=== PATIENT | female | born 1965 | race Caucasian/White ===

== ENCOUNTER → 2024-12-26 | Outpatient (CLI) | payer MEDICAID, SELFPAY ==
--- NOTE | 2024-12-26 14:08 | XR_ITS ---
Examination: PA lateral chest 2 views TECHNIQUE: Upright PA lateral chest 2 views Exam date and time: December 26, thousand 25 1524 hours INDICATIONS: Shortness of breath beginning 5 days ago. FINDINGS: Scarring versus pneumonia in the lingular segment, best depicted on the lateral view Normal heart size Bilateral axillary surgical clips Probable rib deformities in the left upper lobe but clinical correlation advised IMPRESSION: Scarring versus pneumonia in the lingular segment left upper lobe, clinical correlation advised Recommend AP lordotic chest follow-up to confirm rib abnormalities at the left apex
== END | disposition home or self-care (01) ==
LOC: SDIM 13:57
DX: R06.02 Shortness of breath (principal)
CPT/HCPCS: 71046

== ENCOUNTER → 2024-12-28 | Outpatient (CLI) | payer MEDICAID, SELFPAY ==
--- NOTE | 2024-12-28 13:58 | XR_ITS ---
Examination: PA lateral chest 2 views AP lordotic chest single view TECHNIQUE: Upright PA lateral chest 2 views AP upright lordotic chest single view Exam date and time: December 28, 2024 1515 hours INDICATIONS: Rib deformities versus parenchymal disease left apex on chest film December 26, 2024 FINDINGS: Normal heart size Bilateral axillary clips No lobar pneumonia or pulmonary edema Lordotic film does not confirm parenchymal disease at the apices IMPRESSION: No pneumonia or pulmonary edema Lordotic film does not confirm parenchymal disease at the apices
== END | disposition home or self-care (01) ==
DX: Q76.6 Other congenital malformations of ribs (principal)
CPT/HCPCS: 71047

== ENCOUNTER 2025-01-24 11:41 | Emergency (ER) | payer MEDICAID, SELFPAY ==
--- NOTE | 2025-01-24 11:47 | EKG_ITS ---
[facility] Test Date: 2025-01-24 Pat Name: SYBIL ROTHMAN Department: Room: - Gender: Female Pediatric Occupational Therapist: : [id number] Requested By: ED Temporary Provider Order Number: [id number] Reading MD: ED Temporary Provider Measurements Intervals [place] Rate: 81 P: 79 MT: 131 QRS: 57 QRSD: 82 T: 83 QT: 374 QTc: 435 Interpretive Statements SINUS RHYTHM MINIMAL ST DEPRESSION [0.025+ mV ST DEPRESSION] No previous ECG available for comparison /store/S0/[id number].pdf
--- NOTE | 2025-01-24 12:05 | XR_ITS ---
Examination: PA lateral chest 2 views TECHNIQUE: Upright PA lateral chest 2 views Date and time: January 24, 2025 at 1234 hours Comparison the 2024 INDICATIONS: Chest pain shortness of breath today. FINDINGS: Moderate hyperexpansion Bilateral axillary surgical clips Parenchymal disease in the lingular segment, noted on the Dec 28 2024 exam No interval pneumonia or pulmonary edema IMPRESSION: Findings most consistent with scar formation in the lingular segment left upper lobe but clinical correlation advised
--- NOTE | 2025-01-24 12:06 | PD.EDRME ---
Rapid Medical Screening Exam RME Arrival date/time: 01/24/25 11:41 59-year-old female presents to the emergency department today for complaints of chest pain and shortness of breath Chief Complaint: Chest Pain
[2025-01-24 12:08] VITALS: BP 97/61; PULSE 77; RESP 16; TEMP 36.8; O2SAT 98; BMI 19.7
[2025-01-24 12:37] LABS: Basophils % (Auto) 0 % (0-2.5); Eosinophils # (Auto) 0.2 Thou/mm3 (0.0-0.5); Eosinophils % (Auto) 2 % (0-10); Hematocrit 41.4 % (36.0-46.0); Hemoglobin 13.7 g/dL (12.0-16.0); Immature Granulocytes % (Auto) 0 % (0-0); Immature Granulocytes Auto 0.03 Thou/mm3 (0.00-0.00); Lymphocytes # (Auto) 1.6 Thou/mm3 (1.0-4.8); Lymphocytes % (Auto) 16 % (10-50); Mean Corpuscular HGB Conc 33.1 g/dl (31.0-37.0); Mean Corpuscular Hemoglobin 31.8 pg (25.0-35.0); Mean Corpuscular Volume 96 fL (80-100); Monocytes # (Auto) 0.7 Thou/mm3 (0.0-0.8); Monocytes % (Auto) 7 % (0-12); Neutrophils # (Auto) 7.5 Thou/mm3 (1.8-7.7); Neutrophils % (Auto) 75 % (37-80); Nucleated Red Blood Cell % 0 /100 WBC (0); Platelet Count 444 Thou/mm3 (140-440); RDW Standard Deviation 48.7 fL (36.4-46.3); Red Blood Count 4.31 Miln/mm3 (4.00-5.20); White Blood Count 9.9 Thou/mm3 (3.6-11.0)
[2025-01-24 13:00] LABS: B-Type Natriuretic Peptide < 20 pg/mL (0-100)
[2025-01-24 13:02] LABS: Partial Thromboplastin Time 25.7 Seconds (22.0-36.0)
[2025-01-24 13:04] LABS: Alanine Aminotransferase 13 U/L (10-49); Albumin, Serum 3.7 gm/dL (3.5-5.0); Albumin/Globulin Ratio 1.7 (1.2-2.2); Alkaline Phosphatase 107 U/L (46-116); Anion Gap 10 (7-16); Aspartate Amino Transferase 19 U/L (0-34); BUN/Creatinine Ratio 13 Ratio (12-20); Bilirubin,Total 0.6 mg/dL (0.3-1.2); Blood Urea Nitrogen 8 mg/dL (9-23); Calcium (Corrected) 8.2 mg/dL (8.5-10.1); Chloride 105 mMol/L (98-107); Creatinine (Component) 0.6 mg/dL (0.6-1.3); Estimated Creatinine Clearance 85.2 mL/min (>60); Globulin 2.2 gm/dL (2.3-3.5); Glucose 79 mg/dL (74-106); Magnesium 1.8 mg/dL (1.6-2.6); Osmolality,Calculated 282 (275-295); Potassium 3.2 mMol/L (3.4-5.1); Sodium 143 mMol/L (136-145); Total Protein 5.9 gm/dL (5.7-8.2); Troponin I < 0.002 ng/mL (0.0-0.045); eGFR > 60 See Note
[2025-01-24 15:38] LABS: Troponin I < 0.002 ng/mL (0.0-0.045)
[2025-01-24 16:05] VITALS: BP 113/67; PULSE 79; RESP 18; TEMP 36.8; O2SAT 99
== END 2025-01-24 17:35 | disposition left against medical advice (07) ==
LOC: SERX 12:46
PROVIDERS: Nurse Practitioner Primary Care; Emergency Provider Emergency Medicine
DX: R07.9 Chest pain, unspecified (principal); R06.02 Shortness of breath; Z53.29 Procedure and treatment not carried out because of patient's decision for other reasons
CPT/HCPCS: 36415; 71046; 80053; 80307; 81001; 83735; 83880; 84484; 85025; 85610; 85730; 93005; 99281

== ENCOUNTER → 2025-02-15 | Outpatient (CLI) | payer MEDICAID, SELFPAY ==
--- NOTE | 2025-02-15 08:30 | XR_ITS ---
Examination: CT chest, without intravenous contrast. Sagittal and coronal 2-D reconstructions. Exam date and time: February 15 thousand 25 0840 hours INDICATIONS: Smoking history 20 years CTDI:vol (mGy) 6.09 DLP: (mGycm) 235 Technique: Multiple 3.0 mm axial sections of the chest to been obtained. Bone and lung density settings are obtained. Sagittal and coronal 2-D reconstructions have been obtained. Low dose protocols were performed. One or more of the following dose reduction techniques were used; automated exposure control, adjustment of the mA and/or KV according to patient size, use of iterative reconstruction technique. Findings: No thoracic aortic aneurysm dilatation Pulmonary artery segments are not enlarged. Significant calcification left anterior descending coronary artery. No paratracheal tracheobronchial or bronchopulmonary adenopathy. 3 mm pulmonary nodule right lower lobe image 253 Parenchymal disease in the lingular segment and right middle lobe which may be infectious in etiology No pulmonary edema No visualized liver or splenic lesions Absent gallbladder 23 mm fat-containing adrenal mass No hydronephrosis IMPRESSION: 3 mm pulmonary nodule right lower lobe Parenchymal disease in the lingular segment right middle lobe which may be infectious in etiology Recommend 3 month follow-up CT chest without contrast
== END | disposition home or self-care (01) ==
DX: R91.1 Solitary pulmonary nodule (principal); F17.210 Nicotine dependence, cigarettes, uncomplicated; J98.4 Other disorders of lung
CPT/HCPCS: 71250

== ENCOUNTER → 2025-04-19 | Outpatient (CLI) | payer MEDICAID, SELFPAY ==
--- NOTE | 2025-04-19 14:28 | XR_ITS ---
Examination: Cervical spine 3 views Technique one AP lateral coned AP odontoid cervical spine 3 views Date and time: April 19, 2025, 1435 hours INDICATIONS: Neck pain radiating to left arm beginning 2 days ago. FINDINGS: Satisfactory alignment cervical vertebral bodies No cervical fracture. Intact odontoid No significant cervical disc narrowing IMPRESSION: No cervical fracture or significant cervical disc narrowing, consider MRI cervical spine without contrast follow-up
== END | disposition home or self-care (01) ==
LOC: SDIM 14:22
DX: M54.2 Cervicalgia (principal)
CPT/HCPCS: 72040

== ENCOUNTER → 2025-04-26 | Outpatient (CLI) | payer MEDICAID, SELFPAY ==
--- NOTE | 2025-04-26 15:06 | XR_ITS ---
Examination: PA lateral chest 2 views TECHNIQUE: Upright PA lateral chest 2 views Date and time: April 26, 2025 1509 hours, comparison CT chest February 15, 2025, chest x-ray January 24, 2025 INDICATIONS: Coughing shortness of breath beginning one week ago. FINDINGS: Significant hyperexpansion. Normal heart size More pronounced parenchymal disease in the lingular segment left upper lobe Left axillary right axillary surgical clips Bifid left second rib IMPRESSION: More pronounced parenchymal disease in the lingular segment left upper lobe, recommend repeat CT chest post contrast to compare with the February 15, 2025 exam
== END | disposition home or self-care (01) ==
LOC: SDIM 15:01
DX: R05.1 Acute cough (principal)
CPT/HCPCS: 71046

== ENCOUNTER 2025-05-07 10:28 | Emergency (ER) | payer MEDICAID, SELFPAY ==
[2025-05-07 10:29] VITALS: BMI 18.8
[2025-05-07 10:48] VITALS: BP 109/70; PULSE 92; RESP 17; TEMP 36.6; O2SAT 98
--- NOTE | 2025-05-07 10:51 | XR_ITS ---
Examination: Venous duplex lower extremity sonogram, bilateral. Date and time of exam: May 07, 2025 1113 hours INDICATIONS: Bilateral leg edema and pain with walking beginning 2 days ago Technique: Multiple sonographic images of the deep venous system have been obtained. B-mode/2-D grayscale imaging of vascular structures and Doppler spectral analysis (waveforms) and color performed Both legs are examined. Findings: Deep venous systems do not demonstrate abnormal echogenicity. All visualized deep veins exhibit compressibility. All visualized deep veins exhibit augmentation. Impression: Negative for deep vein thrombosis
--- NOTE | 2025-05-07 10:52 | EDRME_ITS ---
Rapid Medical Screening Exam [facility] Arrival date/time: 05/07/25 10:28 59-year-old female with a history of CAD, presents to the emergency room with a chief complaint of lower left-sided extremity swelling. Patient states she was seen by her primary care provider and sent to the emergency room to rule out DVT. Patient smokes cigarettes daily. I have greeted and performed a focused initial assessment of this patient. A comprehensive ED assessment and evaluation of the patient, analysis of all test results, and completion of the medical decision making process will be conducted by additional ED providers. Chief Complaint: Extremity Problem,Nontraumatic Time Seen by Provider: 05/07/25 10:36 Vital signs: Vital Signs Temperature 97.8 F 05/07/25 10:48 Pulse Rate 92 05/07/25 10:48 Respiratory Rate 17 05/07/25 10:48 Blood Pressure 109/70 05/07/25 10:48 Pulse Oximetry (%) 98 05/07/25 10:48 Oxygen Delivery Method Room Air 05/07/25 10:48 Vital signs reviewed by provider: Yes
[2025-05-07 11:48] LABS: Basophils # (Auto) 0.1 Thou/mm3 (0.0-0.2); Basophils % (Auto) 1 % (0-2.5); Eosinophils # (Auto) 0.1 Thou/mm3 (0.0-0.5); Eosinophils % (Auto) 2 % (0-10); Hematocrit 39.1 % (36.0-46.0); Hemoglobin 12.5 g/dL (12.0-16.0); Immature Granulocytes Auto 0.07 Thou/mm3 (0.00-0.00); Lymphocytes # (Auto) 2.2 Thou/mm3 (1.0-4.8); Lymphocytes % (Auto) 35 % (10-50); Mean Corpuscular HGB Conc 32.0 g/dl (31.0-37.0); Mean Corpuscular Hemoglobin 29.3 pg (25.0-35.0); Mean Corpuscular Volume 92 fL (80-100); Monocytes # (Auto) 0.5 Thou/mm3 (0.0-0.8); Monocytes % (Auto) 7 % (0-12); Neutrophils # (Auto) 3.5 Thou/mm3 (1.8-7.7); Neutrophils % (Auto) 54 % (37-80); Nucleated Red Blood Cell # 0.00 Thou/mm3 (0.00-0.00); Nucleated Red Blood Cell % 0 /100 WBC (0); Platelet Count 479 Thou/mm3 (140-440); RDW Standard Deviation 45.1 fL (36.4-46.3); Red Blood Count 4.27 Miln/mm3 (4.00-5.20); White Blood Count 6.4 Thou/mm3 (3.6-11.0)
[2025-05-07 11:59] LABS: INR 1.0 (0.9-1.3); Partial Thromboplastin Time 26.0 Seconds (22.0-36.0); Prothrombin Time 10.9 Seconds (9.0-12.2)
[2025-05-07 12:09] LABS: Alanine Aminotransferase 36 U/L (10-49); Albumin, Serum 2.9 gm/dL (3.5-5.0); Albumin/Globulin Ratio 1.0 (1.2-2.2); Alkaline Phosphatase 155 U/L (46-116); Anion Gap 8 (7-16); Aspartate Amino Transferase 40 U/L (0-34); BUN/Creatinine Ratio 10 Ratio (12-20); Bilirubin,Total 0.4 mg/dL (0.3-1.2); Blood Urea Nitrogen < 5 mg/dL (9-23); Calcium 8.0 mg/dL (8.3-10.6); Calcium (Corrected) 8.9 mg/dL (8.5-10.1); Carbon Dioxide 28.9 mMol/L (20.0-31.0); Chloride 104 mMol/L (98-107); Creatinine (Component) 0.5 mg/dL (0.6-1.3); Estimated Creatinine Clearance 97.8 mL/min (>60); Globulin 2.8 gm/dL (2.3-3.5); Glucose 78 mg/dL (74-106); Osmolality,Calculated 277 (275-295); Sodium 141 mMol/L (136-145); Total Protein 5.7 gm/dL (5.7-8.2); eGFR > 60 See Note
[2025-05-07 12:10] LABS: Potassium 2.6 mMol/L (3.4-5.1)
[2025-05-07 14:50] LABS: Magnesium 1.9 mg/dL (1.6-2.6)
--- NOTE | 2025-05-07 17:05 | PC.NURSE ---
called for pt from lobby/outside, no answerx1@ [id number]
== END 2025-05-07 17:47 | disposition left against medical advice (07) ==
PROVIDERS: Emergency Medicine; Emergency Provider Nurse Practitioner Family
DX: M79.89 Other specified soft tissue disorders (principal); Z53.29 Procedure and treatment not carried out because of patient's decision for other reasons
CPT/HCPCS: 36415; 80053; 83735; 85025; 85610; 85730; 93970; 99283

== ENCOUNTER 2025-07-04 14:27 | Emergency (ER) | payer MEDICAID, SELFPAY ==
[2025-07-04 14:27] VITALS: BMI 18.8
[2025-07-04 14:38] VITALS: BP 126/67; PULSE 67; RESP 18; TEMP 36.7; O2SAT 97
--- NOTE | 2025-07-04 14:50 | PD.EDSKIN ---
ED Skin Abcess FB-RME/HPI General Chief complaint: Skin/Abscess/Foreign Body Stated complaint: R THUMB INFECTION X2 WEEKS Time Seen by Provider: 07/04/25 14:30 Arrival date/time: 07/04/25 14:27 RME / HPI RME / HPI narrative: 59-year-old female with past medical history of breast cancer status post mastectomy and chemo currently in remission who presents to the ER complaining of right thumb pain x 1 week. Patient does endorse that she did finish a Z-Kg few days ago for a cough and she is currently feeling better without any chest pain, shortness of breath or cough at this time.Denies trauma, fever, nausea, vomiting. Denies history of kidney disease. Denies allergies. Related Data Previous Rx's ?Medication ?Instructions ?Recorded cephalexin 500 mg capsule 500 mg PO QID 7 days #28 caps 07/04/25 mupirocin calcium 2 % topical cream 1 applic topical TID #15 grams 07/04/25 sulfamethoxazole 800 1 tab PO BID #14 tabs 07/04/25 mg-trimethoprim 160 mg tablet (Bactrim DS) Allergies Allergy/AdvReac Type Severity Reaction Status Date / Time codeine Allergy Verified 07/04/25 14:30 iodine Allergy Verified 07/04/25 14:30 Review of Systems Review of Systems Systems Reviewed: All systems reviewed, normal except as documented ED Exam Narrative Physical exam: Constitutional: Vital Signs Reviewed. Well appearing. No acute distress. Not toxic appearing. Head: Normocephalic, atraumatic. Eyes: Conjunctiva clear. ENT: Mucous membranes moist. Neck: Trachea midline. Normal range of motion. No nuchal rigidity. Respiratory: Normal effort. No respiratory distress or accessory muscle use. Neuro: Alert and oriented. Speech normal. No focal gross motor or sensory deficits observed. Skin: Warm, dry, normal color. Psych: Pleasant. Normal affect. Cooperative. R Hand: + TTP erythema, to ulnar nail fold. No crepitus, fluctuance, induration. FROM and Strength 5/5 for Thumb: abduction and adduction intact; flexion and extension intact at MCP and IP joint. Sensation intact to light touch in radial, ulnar, and median nerve distributions. No snuffbox tenderness. Cap refill < 2 seconds for R 1st digit. Course Course Course Narrative: MDM This patient?s soft tissue infection appears appropriate for outpatient management with close follow-up by a clinician within 24?48 hours. There are no signs of systemic toxicity, and a serious, rapidly progressive infection is unlikely based on presentation and exam. Doubt necrotizing fasciitis given lack of tenderness beyond erythema or crepitus, and doubt lymphangitis given lack of streaking. Incision and drainage was attempted after discussion of risks and benefits in the central most region of tenderness without evacuation of contents or even serosangiounous fluid. Antibiotics have been prescribed, and response will be assessed at follow-up. The patient has been instructed on signs of acute progression and to return immediately if symptoms worsen or change. Quality Measures none Reevaluation(s) Reevaluation #1: At the time of reassessment, the patient remains alert and oriented ?3 with GCS 15. Digit remains distally neurovascular intact with soft compartments and a Band-Aid was placed. Vitals are normal, pain is controlled, and the patient is tolerating oral intake without nausea or vomiting. The patient is agreeable to discharge and verbalizes understanding of the diagnosis, studies, treatment plan, medications (including side effects/precautions), and strict ER return precautions as discussed in the ED. All concerns were addressed, and the patient is comfortable with the plan. Vital Signs Vital signs: Vital Signs Temperature 98.1 F 07/04/25 14:38 Pulse Rate 67 07/04/25 14:38 Respiratory Rate 18 07/04/25 14:38 Blood Pressure 126/67 07/04/25 14:38 Pulse Oximetry (%) 97 07/04/25 14:38 Oxygen Delivery Method Room Air 07/04/25 14:38 PROCEDURES: Procedure Comment Incision and drainage performed with a 15 blade as I inserted it just underneath the nail fold without any evacuation of contents, I offered her a digital block however she declined I additionally offered her a more aggressive approach however she declined as well which is reasonable as no focal fluctuance was palpated Abscess I/D Side (if applicable): right Technique: incised with #11 blade and other Amount of fluid expressed (mL): 0 Irrigation: No Packing used?: none Skin / Abscess / Foreign Body Patient data External records reviewed:: None Clinical information provided by:: patient Social determinants that could affect healthcare access:: none Patient has the following chronic illnesses:: as noted How is presenting disease/condition affected by chronic disease/condition?: uneffected by Evaluation data The following diagnostics were reviewed and interpreted by me:: other (specify) Lab and/or radiology exams considered but not ordered:: Additional Labs and radiology considered, but not ordered as they were not clinically indicated at this time. Interpretation Summary: As noted Medications / Prescriptions Medications or Prescriptions considered but not ordered:: I considered prescription management (both outpatient prescriptions AND drug treatment in the ER) and decided that this was necessary and was prescribed as charted. Medication administrations:: None Consultations Consultation(s) initiated? (list below): No Diagnosis Skin/Abscess Differential Diagnosis: abscess of skin or subcutaneous tissue, cellulitis, impetigo and other Most likely diagnosis given after review of the tests above:: Paronychia complicated by mild cellulitis Admission Indicated Admission indicated?: not indicated Admission Request Was there a request for admission?: No Disposition Plan Disposition Plan: Discharge Discharge Attestation Discharge Attestation: The patient and all family members were given an opportunity to ask questions and understood the discharge instructions. Discharge instructions specifically effects, indications for sooner follow up or return to the emergency department, and the expected course of current diagnosis. Patient condition: Stable Discharge Plan Plan Patient Disposition: HOME (Self Care) Patient condition on transfer: Stable Prescriptions/Referrals Prescriptions/Med Rec: New cephalexin 500 mg capsule 500 mg PO QID 7 Days Qty: 28 0RF sulfamethoxazole-trimethoprim [Bactrim DS] 800-160 mg tablet 1 tab PO BID Qty: 14 0RF mupirocin calcium 2 % cream 1 applic topical TID Qty: 15 0RF Problem List Clinical Impression: Cellulitis Patient/Caregiver Discharge Instructions Education Materials: ED Cellulitis, ED Paronychia of the Finger or Toe Additional Instructions: Follow up with your primary medical doctor within 48 hours. Return to the Emergency Room immediately for any new, worsening, continuing symptoms or any concerns at all. Return to the Emergency Room within 48 hours if you are unable to follow up with your primary medical doctor within 48 hours. Perform warm compresses 20 minutes at a time 3 times daily. Print Language: [place] Stand Alone Forms: Becki Award Info., Patient Portal Info Letter PA/CLINICAL DOCUMENTATION CLERK Supervising Physician PA/CLINICAL DOCUMENTATION CLERK Supervising Physician: Dr. Olivarez
--- NOTE | 2025-07-04 15:07 | PC.NURSE ---
left without discharge paperwork
== END 2025-07-04 15:47 | disposition home or self-care (01) ==
LOC: SERX 15:41
PROVIDERS: Emergency Provider Family Medicine
DX: L03.011 Cellulitis of right finger (principal)
CPT/HCPCS: 99281

== ENCOUNTER → 2025-08-15 | Outpatient (CLI) | payer MEDICAID, SELFPAY ==
--- NOTE | 2025-08-15 08:08 | XR_ITS ---
Examination: CT chest with intravenous contrast 2-D sagittal and coronal reconstructions Exam date and time: August 15, 2025, 1023 hours, comparison noncontrast CT chest February 15, 2025 INDICATIONS: CT chest February 15, 2025 3 mm pulmonary nodule right lower lobe parenchymal disease lingular segment and right middle lobe CTDI:vol (mGy) 6.89 DLP: (mGycm) 269 Technique: Multiple axial sections of the thorax have been obtained. Sections have been obtained, 3 mm slice thickness. Mediastinal and lung density settings have been obtained. Intravenous contrast administered, 60 cc Isovue-370. 2-D sagittal, coronal images obtained. Low dose protocols were performed. One or more of the following dose reduction techniques were used; automated exposure control, adjustment of the mA and/or KV according to patient size, use of iterative reconstruction technique. Findings: No thoracic aortic aneurysm dilatation No pulmonary artery filling defects Heavy calcification left anterior descending coronary artery No paratracheal tracheobronchial or bronchopulmonary adenopathy Less prominent parenchymal disease in the right middle lobe and lingular segment, which may represent scar formation on the current study No visualized liver or splenic lesion Absent gallbladder No common bile duct stones No hydronephrosis Osseous structures intact IMPRESSION: Improvement in parenchymal disease in the right middle lobe and lingular segment, which may represent scar formation, recommend 2-week follow-up PA lateral chest x-ray
[2025-08-15 09:47] VITALS: BP 124/77; PULSE 78; RESP 19; TEMP 36.2; O2SAT 100
[2025-08-15 10:28] VITALS: BP 131/76; PULSE 74; RESP 21; O2SAT 100
--- NOTE | 2025-08-15 10:44 | PC.NURSE ---
Patient no signs of allergic reaction, no redness, no itchiness, and patient states she feels perfectly fine. d/c time [id number]
== END | disposition home or self-care (01) ==
LOC: SCAT 07:46
DX: J98.4 Other disorders of lung (principal)
CPT/HCPCS: 71260; A4649; J1200; Q9967